=== PATIENT | female | born 1935 | race Caucasian/White ===

== ENCOUNTER 2016-11-05 12:59 | Outpatient (CLI) | payer OTHER, MEDICARE ==
--- NOTE | 2016-11-05 13:38 | DIAGNOSTIC IMAGING REPORT ---
PROCEDURE: XR CERVICAL SPINE 4 OR 5 VIEW INDICATION: HEADACE TECHNIQUE: Five views. COMPARISON: None. FINDINGS: There is spondylosis and disc space narrowing at C3-4 C4-5 C5-6 and C6-7. At C5-6 there is a posterior osteophytic ridge. No evidence of an acute process or fracture. Neural foramina are normal. IMPRESSION: 1. Mild spondylosis, greatest at C5-6.
== END 2016-11-05 23:00 ==
LOC: XR SRH 12:59
DX: R51 Headache (principal); M47.812 Spondylosis without myelopathy or radiculopathy, cervical region